=== PATIENT | male | born 1975 | race Caucasian/White ===

== ENCOUNTER 2023-03-29 10:37 | Emergency (ER) | payer OTHER ==
[2023-03-29 10:55] VITALS: BMI 23.6
[2023-03-29 14:02] VITALS: BP 137/90; PULSE 69; RESP 18; TEMP 98.7
== END 2023-03-29 14:32 | disposition home or self-care (01) ==
LOC: JER 10:37
DX: C43.62 Malignant melanoma of left upper limb, including shoulder (principal)
CPT/HCPCS: 99282-25